=== PATIENT | male | born 1970 | race American Indian/Alaskan Native ===

== ENCOUNTER 2018-03-14 10:23 | Emergency (ER) | payer SELFPAY ==
[2018-03-14 10:35] VITALS: BP 128/72
--- NOTE | 2018-03-14 11:01 | Emergency Department Report ---
Vomiting/Diarrhea - HPI Chief Complaint: Nausea/Vomiting/Diarrhea Stated Complaint: DIARRHEA Time Seen by Provider: 03/14/18 10:54 Duration: 2 Days Severity: moderate Nausea/Vomiting Severity: None Diarrhea Severity: Mild Pain Location: Generalized Pain Severity: Mild Symptoms: Yes Able to Tolerate Fluids, Yes Family w/ Similar Symptoms (pt's daughter), No Watery Diarrhea, No Bloody diarrhea, No Fever, No Recent Unusual Foods, No Recent Untreated Water, No Recent use of Antibiotics, No Contacts w/ Similar Symptoms, No Rash, No Hematuria, No Recent URI Symptoms ED Review of Systems ROS: Stated complaint: DIARRHEA Other details as noted in HPI Comment: All other systems reviewed and negative ED Past Medical Hx - Past Medical History Previous Medical History?: No - Surgical History Past Surgical History?: No - Social History Smoking Status: Current Every Day Smoker Substance Use Type: None - Medications Home Medications: Home Medications Medication Instructions Recorded Confirmed Last Taken Type cephALEXin [Keflex] 500 mg PO Q6HR #28 capsule 04/28/15 Unknown Rx Ibuprofen [Motrin 800 MG tab] 800 mg PO Q8HR PRN #30 tablet 06/05/16 Unknown Rx Dicyclomine [Bentyl] 10 mg PO QID #15 capsule 03/14/18 Unknown Rx Diphenoxylate/Atropine [Lomotil] 1 tab PO Q4H PRN #10 tablet 03/14/18 Unknown Rx Vomiting Diarrhea Exam - Exam General: Vital signs noted. No distress. Alert and acting appropriately. HEENT: Yes Moist Mucous Membranes, No Pharyngeal Erythema, No Pharyngeal Exudates, No Rhinorrhea, No Conjuctival Injection, No Frontal Tenderness, No Maxillary Tenderness Neck: No Adenopathy, No Rigidity Lungs: Yes Clear Lung Sounds, Yes Good Air Exchange, No Wheezes, No Stridor, No Cough, No Nasal Flaring, No Retractions, No Use of Accessory Muscles Heart exam: Regular: Yes, Murmur: No, Tachycardia: No Abdomen: Tenderness: No, Peritoneal Signs: No, Distention: No, Hyperactive Bowel sounds: No Skin exam: Rash: No, Edema: No, Normal turgor: Yes Neurologic: Alert and oriented, no deficits. Musculoskeletal: Unremarkable. ED Course Vital Signs 03/14/18 10:34 Temperature 98.8 F Pulse Rate 68 Respiratory 16 Rate Blood Pressure 128/72 O2 Sat by Pulse 97 Oximetry ED Medical Decision Making - Medical Decision Making Patient has normal vital signs as abdomen is soft and nontender. Patient does not meet criteria for additional studies. Patient has had exposure to family member who is also ill. Patient restarted on meds for symptomatic relief and will be discharged home. Critical care attestation.: If time is entered above; I have spent that time in minutes in the direct care of this critically ill patient, excluding procedure time. ED Disposition Clinical Impression: Viral enteritis Disposition: DC-01 TO HOME OR SELFCARE Is pt being admited?: No Does the pt Need Aspirin: No Condition: Stable Instructions: Acute Diarrhea (ED) Referrals: PRIMARY CARE, [Primary Care Provider] - 3-5 Days Forms: Work/School Release Form(ED) Time of Disposition: 10:57
== END 2018-03-14 11:04 | disposition home or self-care (01) ==
LOC: ED 10:23
DX: A08.39 Other viral enteritis (principal); F17.200 Nicotine dependence, unspecified, uncomplicated
CPT/HCPCS: 99282

== ENCOUNTER 2018-11-29 04:08 | Emergency (ER) | payer SELFPAY ==
[2018-11-29 05:07] VITALS: BP 126/93
[2018-11-29 08:40] LABS: Basophils % (Auto) 0.7 % (0.0-1.8); Eosinophils # (Auto) 0.1 K/mm3 (0.0-0.4); Eosinophils % (Auto) 1.6 % (0.0-4.3); Hemoglobin 14.9 gm/dl (11.8-15.2); Lymphocytes # (Auto) 2.2 K/mm3 (1.2-5.4); Lymphocytes % (Auto) 34.1 % (13.4-35.0); Mean Corpuscular HGB Conc 33 % (32-34); Mean Corpuscular Volume 83 fl (84-94); Monocytes # (Auto) 0.8 K/mm3 (0.0-0.8); Monocytes % (Auto) 12.6 % (0.0-7.3); Platelet Count 265 K/mm3 (140-440); Red Blood Count 5.55 M/mm3 (3.65-5.03); Red Cell Distribution Width 14.9 % (13.2-15.2)
[2018-11-29 09:00] LABS: BUN/Creatinine Ratio 15; Blood Urea Nitrogen 16 mg/dL (9-20); Calcium 9.6 mg/dL (8.4-10.2); Hemolysis Index 71
[2018-11-29 09:46] LABS: Bacteria,Urine 1+ /HPF (Negative); Bilirubin,Urine NEG (Negative); Blood,Urine NEG (Negative); Color,Urine Yellow (Yellow); Mucus,Urine FEW /HPF; Protein,Urine <15 mg/dL mg/dL (Negative); Urobilinogen,Urine < 2.0 mg/dL (<2.0)
[2018-11-29] MEDS ORDERED: FLAGYL PO ONE (09:49)
[2018-11-29] MEDS ORDERED: ZITHROMAX PO ONE (09:49)
[2018-11-29] MEDS ORDERED: ROCEPHIN IM ONE (09:49)
[2018-11-29] MEDS ORDERED: XYLOCAINE 1% MPF 5 mL INFILTRATI ONE (09:49)
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
== END 2018-11-29 10:27 | disposition home or self-care (01) ==
LOC: ED 04:08
DX: A64 Unspecified sexually transmitted disease (principal); F17.200 Nicotine dependence, unspecified, uncomplicated
CPT/HCPCS: 36415; 80048; 81001; 85025; 87086; 87591; 96372; 99283; J0696

== ENCOUNTER 2020-07-16 11:50 | Emergency (ER) | payer SELFPAY ==
--- NOTE | 2020-07-16 12:02 | Emergency Department Report ---
Stated Complaint: DISCHARGE Time Seen by Provider: 07/16/20 12:02 - HPI History of Present Illness: exposure to BV wants checked for STI no discharge no testicular pain - ROS Review of Systems: no symptoms - Exam Vital Signs: normal per written documentation by RN Physical Exam: a/o no distress abd snt ambulatory s1s2 MSE screening note: Focused history and physical exam performed. Due to findings the following was ordered: no life threat MSE to PCP verbalizes understanding of dc poc Patient discussed with doctor:: HARRIS STONER ED Disposition for MSE Clinical Impression: Concern about STD in male without diagnosis Disposition: Z- MED SCREENING EXAM-LEFT Is pt being admited?: No Does the pt Need Aspirin: No Condition: Stable Additional Instructions: safe sex Referrals: VIBHA TUCKER MD [Staff Physician] - 3-5 Days Time of Disposition: 12:06
[2020-07-16 12:06] VITALS: BP 149/92
== END 2020-07-16 12:06 | disposition left against medical advice (07) ==
LOC: ED 11:50
DX: Z00.8 Encounter for other general examination (principal); Z53.21 Procedure and treatment not carried out due to patient leaving prior to being seen by health care provider

== ENCOUNTER 2020-07-17 10:59 | Outpatient (CLI) | payer OTHER | END 2020-07-17 11:00 | disposition home or self-care (01) | LOC: LAB 10:59 | PROVIDERS: ATTEND Internal Medicine | DX: A64 Unspecified sexually transmitted disease (principal) | CPT/HCPCS: 36415; 86689; 87591 ==